=== PATIENT | female | born 1955 | race Caucasian/White ===

== ENCOUNTER 2018-09-02 16:48 | Emergency (ER) | payer BC ==
[~2018-09-02] VITALS: Ht 170.2 cm; Wt 84.4 kg
[2018-09-02 17:15] VITALS: Ht 170.2 cm; Wt 84.4 kg
[2018-09-02 18:34] VITALS: BP 146/81
== END 2018-09-02 18:34 | disposition home or self-care (01) ==
LOC: ED 16:48
DX: S93.401A Sprain of unspecified ligament of right ankle, initial encounter (principal); W06.XXXA Fall from bed, initial encounter; Y93.89 Activity, other specified; Y92.89 Other specified places as the place of occurrence of the external cause; Y99.8 Other external cause status

== ENCOUNTER 2019-09-29 10:32 | Emergency (ER) | payer OTHER, SELFPAY ==
[~2019-09-29] VITALS: Ht 170.2 cm; Wt 84.8 kg
[2019-09-29 10:43] VITALS: Ht 170.2 cm; Wt 84.8 kg
[2019-09-29 11:01] VITALS: BP 1369/72
== END 2019-09-29 12:37 | disposition home or self-care (01) ==
LOC: ED 10:32
DX: J40 Bronchitis, not specified as acute or chronic (principal); Z20.828 Contact with and (suspected) exposure to other viral communicable diseases
CPT/HCPCS: J7512